=== PATIENT | female | born 1960 | race Caucasian/White ===

== ENCOUNTER 2020-03-29 08:00 | Outpatient (REF) | payer OTHER, SELFPAY ==
[2020-03-29 11:16] LABS: MANUAL DIFF FLAG NO
[2020-03-29 11:32] LABS: Basophils Percent Auto 0.4 % (0-2); Eosinophils Absolute Auto 0.1 X10*3/uL (0.0-0.4); Eosinophils Percent Auto 0.8 % (0-4); Hematocrit 42.8 % (37-47); Hemoglobin 13.9 g/dl (12.0-16.0); Imm Gran Abs Auto 0.08 X10*3/uL (0.00-0.03); Imm Gran Pct Auto 0.8 % (0.0-0.4); Lymphocytes Absolute Auto 2.3 X10*3/uL (1.2-4.9); Lymphocytes Percent Auto 21.4 % (20-40); Mean Corpuscular HGB Conc 32.5 g/dl (31.0-35.0); Mean Corpuscular Hemoglobin 31.7 pg (27.0-33.0); Mean Corpuscular Volume 97.7 fL (80-98); Mean Platelet Volume 8.7 fL (9.4-12.3); Monocytes Absolute Auto 0.6 X10*3/uL (0.1-1.2); Neutrophils Absolute Auto 7.5 X10*3/uL (2.0-8.3); Neutrophils Percent Auto 70.6 % (45-73); Platelet Count 332 X10*3/uL (160-400); Red Blood Count 4.38 X10*6/uL (4.20-5.50); Red Cell Distribution Width 13.8 % (11.0-16.0); White Blood Count 10.7 X10*3/uL (4.8-10.8)
[2020-03-29 12:20] LABS: Alanine Aminotransferase 13 U/L (0-31); Albumin Level 4.4 g/dL (3.5-5.0); Alkaline Phosphatase 71 U/L (39-117); Anion Gap 17 (12-20); Aspartate Amino Transferase 13 U/L (5-31); Bilirubin Total 0.3 mg/dL (0.0-1.0); Blood Urea Nitrogen 23 mg/dL (9-16); Calcium 8.8 mg/dL (8.4-10.2); Carbon Dioxide 24 mmol/L (22-29); Chloride 100 mmol/L (96-108); Cholesterol 197 mg/dL; Estimated Glomerular Filt Rate > 60; Glucose Fasting 115 mg/dL (60-99); HDL Cholesterol 49 mg/dL; LDL Cholesterol Calculated 104 mg/dl; Potassium 4.6 mmol/l (3.3-5.1); Sodium 136 mmol/L (135-145); Triglycerides 222 mg/dL
[2020-03-29 12:43] LABS: Estimated Average Glucose 131 mg/dL; Hemoglobin A1c % 6.2 %
[2020-03-29 12:47] LABS: TSH reflex Free T4 6.05 mIU/mL (0.32-4.0)
[2020-03-29 12:49] LABS: Creatinine Urine 101.29 mg/dL; Microalbum/Creatinine Ratio Ur 21.7 ug/mg cr
[2020-03-29 13:27] LABS: Free T4 (Free Thyroxine) 1.07 ng/dL (0.71-1.85)
== END 2020-03-29 08:01 | disposition home or self-care (01) ==
LOC: HO.HMGCLDS 08:00
PROVIDERS: PCP Internal Medicine; Visit Provider Internal Medicine
DX: I10 Essential (primary) hypertension (principal); E78.9 Disorder of lipoprotein metabolism, unspecified; E03.8 Other specified hypothyroidism; E13.9 Other specified diabetes mellitus without complications; E66.01 Morbid (severe) obesity due to excess calories; Z68.41 Body mass index [BMI] 40.0-44.9, adult; Z76.89 Persons encountering health services in other specified circumstances
CPT/HCPCS: 36415; 80053; 80061; 82043; 83036; 84439; 84443; 85025

== ENCOUNTER 2020-07-11 08:39 | Outpatient (REF) | payer OTHER, SELFPAY ==
[2020-07-11 11:43] LABS: Estimated Average Glucose 131 mg/dL; Hemoglobin A1c % 6.2 %
[2020-07-11 11:51] LABS: Alanine Aminotransferase 16 U/L (0-31); Albumin Level 4.7 g/dL (3.5-5.0); Alkaline Phosphatase 72 U/L (39-117); Anion Gap 15 (12-20); Aspartate Amino Transferase 15 U/L (5-31); Bilirubin Direct 0.2 mg/dL (0.0-0.5); Bilirubin Total 0.6 mg/dL (0.0-1.0); Blood Urea Nitrogen 19 mg/dL (9-16); Calcium 9.1 mg/dL (8.4-10.2); Carbon Dioxide 28 mmol/L (22-29); Chloride 97 mmol/L (96-108); Estimated Glomerular Filt Rate > 60; Glucose Random 114 mg/dL (60-115); Potassium 4.6 mmol/L (3.3-5.1); Sodium 135 mmol/L (135-145); Total Protein 7.2 g/dL (6.5-8.0)
[2020-07-11 12:14] LABS: Creatinine Urine 80.75 mg/dL; Microalbum/Creatinine Ratio Ur 14.8 ug/mg cr
[2020-07-11 12:15] LABS: TSH reflex Free T4 6.14 uIU/mL (0.32-4.0)
[2020-07-11 13:06] LABS: Free T4 (Free Thyroxine) 1.08 ng/dL (0.71-1.85)
[2020-07-12 06:31] LABS: LDL Cholesterol Direct 92 mg/dL (<100)
== END 2020-07-11 08:40 | disposition home or self-care (01) ==
LOC: HO.HMGCLDS 08:39
PROVIDERS: PCP Internal Medicine; Visit Provider Internal Medicine
DX: E13.9 Other specified diabetes mellitus without complications (principal); E03.8 Other specified hypothyroidism; E78.9 Disorder of lipoprotein metabolism, unspecified; I10 Essential (primary) hypertension
CPT/HCPCS: 36415; 80048; 80076; 82043; 83036; 83721; 84439; 84443

== ENCOUNTER 2021-03-07 06:31 | Outpatient (REF) | payer OTHER, SELFPAY ==
[2021-03-07 11:20] LABS: MANUAL DIFF FLAG NO
[2021-03-07 11:23] LABS: Basophils Absolute Auto 0.1 X10*3/uL (0.0-0.2); Basophils Percent Auto 0.6 % (0-2); Eosinophils Absolute Auto 0.2 X10*3/uL (0.0-0.4); Eosinophils Percent Auto 1.8 % (0-4); Hemoglobin 14.7 g/dl (12.0-16.0); Imm Gran Abs Auto 0.04 X10*3/uL (0.00-0.03); Imm Gran Pct Auto 0.5 % (0.0-0.4); Lymphocytes Percent Auto 23.8 % (20-40); Mean Corpuscular HGB Conc 32.7 g/dl (31.0-35.0); Mean Corpuscular Volume 94.9 fL (80-98); Monocytes Absolute Auto 0.7 X10*3/uL (0.1-1.2); Monocytes Percent Auto 8.8 % (2-11); Neutrophils Absolute Auto 5.4 X10*3/uL (2.0-8.3); Neutrophils Percent Auto 64.5 % (45-73); Platelet Count 308 X10*3/uL (160-400); Red Blood Count 4.74 X10*6/uL (4.20-5.50); Red Cell Distribution Width 13.4 % (11.0-16.0); White Blood Count 8.3 X10*3/uL (4.8-10.8)
[2021-03-07 11:36] LABS: Estimated Average Glucose 128 mg/dL; Hemoglobin A1c % 6.1 %
[2021-03-07 11:46] LABS: Alanine Aminotransferase 16 U/L (0-31); Albumin Level 4.3 g/dL (3.5-5.0); Alkaline Phosphatase 78 U/L (39-117); Anion Gap 16 (12-20); Aspartate Amino Transferase 18 U/L (5-31); Bilirubin Total 0.3 mg/dL (0.0-1.0); Blood Urea Nitrogen 16 mg/dL (9-16); Calcium 8.9 mg/dL (8.4-10.2); Carbon Dioxide 26 mmol/L (22-29); Chloride 99 mmol/L (96-108); Cholesterol 175 mg/dL; Estimated Glomerular Filt Rate > 60; Glucose Fasting 120 mg/dL (60-99); HDL Cholesterol 45 mg/dL; LDL Cholesterol Calculated 102 mg/dl; Potassium 4.5 mmol/L (3.3-5.1); Sodium 136 mmol/L (135-145); Total Protein 6.7 g/dL (6.5-8.0); Triglycerides 141 mg/dL
[2021-03-07 11:56] LABS: TSH reflex Free T4 2.57 uIU/mL (0.32-4.0)
[2021-03-07 12:13] LABS: Creatinine Urine 156.86 mg/dL; Microalbum/Creatinine Ratio Ur 24.2 ug/mg cr
== END 2021-03-07 06:32 | disposition home or self-care (01) ==
LOC: HO.HMGCLDS 06:31
PROVIDERS: PCP Internal Medicine; Visit Provider Internal Medicine
DX: E03.8 Other specified hypothyroidism (principal); E13.9 Other specified diabetes mellitus without complications; E78.9 Disorder of lipoprotein metabolism, unspecified; I10 Essential (primary) hypertension
CPT/HCPCS: 36415; 80053; 80061; 82043; 83036; 84443; 85025

== ENCOUNTER 2021-08-13 13:20 | Outpatient (REF) | payer OTHER, SELFPAY ==
--- NOTE | ~2021-08-13 | MM_ITS ---
EXAMINATION: MM SCREENING DIGITAL BREAST TOMOSYNTHESIS, BILATERAL CLINICAL INFORMATION: Screening. Asymptomatic. The lifetime risk of breast cancer based on the Tyrer-Cuzick Model is 4%. COMPARISON: Mammography: 07/06/2015 TECHNIQUE: Digital breast tomosynthesis is performed in both the craniocaudal and mediolateral oblique views along with computer-aided detection (CAD). Synthesized 2D images are generated from the tomosynthesis. FINDINGS: There are scattered areas of fibroglandular density (ACR BI-RADS breast composition Category b). There are no significant masses, abnormal calcifications, or other abnormalities. Parenchymal pattern is similar to prior exam. There are scattered benign round and rim and some vascular calcifications. The axilla and skin contours are unremarkable. No significant changes. MM/MM tomosynthesis screening BI IMPRESSION: No mammographic evidence of malignancy. ASSESSMENT: BI-RADS 1: Negative RECOMMENDATION: Routine annual mammography screening. This patient's information was entered into a reminder system with a target due date for their next mammogram.
== END 2021-08-13 13:21 | disposition home or self-care (01) ==
LOC: HO.MAMMO 13:20
PROVIDERS: PCP Internal Medicine; Visit Provider Internal Medicine
DX: Z12.31 Encounter for screening mammogram for malignant neoplasm of breast (principal)
CPT/HCPCS: 77063; 77067

== ENCOUNTER 2021-08-17 07:30 | Outpatient (REF) | payer OTHER, SELFPAY ==
[2021-08-17 11:24] LABS: Alanine Aminotransferase 14 U/L (0-31); Albumin Level 4.4 g/dL (3.5-5.0); Alkaline Phosphatase 70 U/L (39-117); Anion Gap 16 (12-20); Aspartate Amino Transferase 14 U/L (5-31); Bilirubin Total 0.5 mg/dL (0.0-1.0); Blood Urea Nitrogen 20 mg/dL (9-16); Calcium 9.4 mg/dL (8.4-10.2); Carbon Dioxide 23 mmol/L (22-29); Chloride 101 mmol/L (96-108); Cholesterol 187 mg/dL; Estimated Average Glucose 126 mg/dL; Estimated Glomerular Filt Rate > 60; Glucose Fasting 140 mg/dL (60-99); HDL Cholesterol 50 mg/dL; LDL Cholesterol Calculated 106 mg/dl; Potassium 4.8 mmol/L (3.3-5.1); Sodium 135 mmol/L (135-145); Total Protein 6.9 g/dL (6.5-8.0); Triglycerides 155 mg/dL
[2021-08-17 11:28] LABS: Creatinine Urine 89.52 mg/dL; Microalbum/Creatinine Ratio Ur 32.3 ug/mg cr
== END 2021-08-17 07:31 | disposition home or self-care (01) ==
LOC: HO.HMGCLDS 07:30
PROVIDERS: PCP Internal Medicine; Visit Provider Internal Medicine
DX: Z00.01 Encounter for general adult medical examination with abnormal findings (principal); I10 Essential (primary) hypertension; E78.9 Disorder of lipoprotein metabolism, unspecified; E03.8 Other specified hypothyroidism; E13.9 Other specified diabetes mellitus without complications
CPT/HCPCS: 36415; 80053; 80061; 82043; 83036; 84443

== ENCOUNTER 2022-01-21 08:14 | Outpatient (REF) | payer OTHER, SELFPAY ==
[2022-01-21 12:02] LABS: Alanine Aminotransferase 11 U/L (0-31); Albumin Level 4.3 g/dL (3.5-5.0); Alkaline Phosphatase 73 U/L (39-117); Anion Gap 17 (12-20); Aspartate Amino Transferase 13 U/L (5-31); Bilirubin Total 0.5 mg/dL (0.0-1.0); Blood Urea Nitrogen 16 mg/dL (9-16); Calcium 8.7 mg/dL (8.4-10.2); Carbon Dioxide 25 mmol/L (22-29); Chloride 99 mmol/L (96-108); Estimated Glomerular Filt Rate > 60; Glucose Random 115 mg/dL (60-115); Potassium 4.7 mmol/L (3.3-5.1); Sodium 136 mmol/L (135-145); Total Protein 6.9 g/dL (6.5-8.0)
[2022-01-21 12:17] LABS: Estimated Average Glucose 120 mg/dL; Hemoglobin A1c % 5.8 %
[2022-01-21 12:39] LABS: Creatinine Urine 168.52 mg/dL; Microalbum/Creatinine Ratio Ur 13.6 ug/mg cr
== END 2022-01-21 08:15 | disposition home or self-care (01) ==
LOC: HO.HMGCLDS 08:14
PROVIDERS: PCP Internal Medicine; Visit Provider Internal Medicine
DX: E03.8 Other specified hypothyroidism (principal); E13.9 Other specified diabetes mellitus without complications; E66.01 Morbid (severe) obesity due to excess calories; E78.9 Disorder of lipoprotein metabolism, unspecified; I10 Essential (primary) hypertension
CPT/HCPCS: 36415; 80053; 82043; 83036

== ENCOUNTER 2022-09-18 07:50 | Outpatient (REF) | payer OTHER, SELFPAY ==
[2022-09-18 11:15] LABS: MANUAL DIFF FLAG NO
[2022-09-18 11:36] LABS: Basophils Absolute Auto 0.1 X10*3/uL (0.0-0.2); Basophils Percent Auto 0.6 % (0-2); Eosinophils Absolute Auto 0.1 X10*3/uL (0.0-0.4); Eosinophils Percent Auto 0.5 % (0-4); Hematocrit 46.6 % (37.0-47.0); Hemoglobin 15.8 g/dl (12.0-16.0); Imm Gran Abs Auto 0.07 X10*3/uL (0.00-0.03); Imm Gran Pct Auto 0.7 % (0.0-0.4); Lymphocytes Absolute Auto 2.4 X10*3/uL (1.2-4.9); Lymphocytes Percent Auto 22.5 % (20-40); Mean Corpuscular HGB Conc 33.9 g/dl (31.0-35.0); Mean Corpuscular Hemoglobin 32.3 pg (27.0-33.0); Mean Corpuscular Volume 95.3 fL (80.0-98.0); Mean Platelet Volume 8.9 fL (9.4-12.3); Monocytes Absolute Auto 0.6 X10*3/uL (0.1-1.2); Monocytes Percent Auto 5.8 % (2-11); Neutrophils Absolute Auto 7.3 x10*3/uL (2.0-8.3); Neutrophils Percent Auto 69.9 % (45-73); Platelet Count 349 X10*3/uL (160-400); Red Blood Count 4.89 X10*6/uL (4.20-5.50); Red Cell Distribution Width 14.1 % (11.0-16.0); White Blood Count 10.5 X10*3/uL (4.8-10.8)
[2022-09-18 12:16] LABS: Creatinine Urine 77.87 mg/dL; Microalbum/Creatinine Ratio Ur 62.9 ug/mg cr
[2022-09-18 12:17] LABS: Alanine Aminotransferase 10 U/L (0-31); Albumin Level 4.4 g/dL (3.5-5.0); Alkaline Phosphatase 76 U/L (39-117); Anion Gap 15 (12-20); Aspartate Amino Transferase 12 U/L (5-31); Bilirubin Total 0.6 mg/dL (0.0-1.0); Blood Urea Nitrogen 19 mg/dL (9-16); Calcium 8.9 mg/dL (8.4-10.2); Carbon Dioxide 27 mmol/L (22-29); Chloride 100 mmol/L (96-108); Cholesterol 198 mg/dL; Estimated Glomerular Filt Rate > 60; Glucose Fasting 126 mg/dL (60-99); HDL Cholesterol 57 mg/dL; LDL Cholesterol Calculated 116 mg/dl; Potassium 4.9 mmol/L (3.3-5.1); Sodium 137 mmol/L (135-145); TSH reflex Free T4 2.05 uIU/mL (0.32-4.0); Triglycerides 125 mg/dL
[2022-09-18 12:24] LABS: Estimated Average Glucose 128 mg/dL; Hemoglobin A1C 182.8656 umol/L; Hemoglobin A1c % 6.1 %
== END 2022-09-18 07:51 | disposition home or self-care (01) ==
LOC: HO.HMGCLDS 07:50
PROVIDERS: PCP Internal Medicine; Visit Provider Internal Medicine
DX: E03.8 Other specified hypothyroidism (principal); E13.9 Other specified diabetes mellitus without complications; E66.01 Morbid (severe) obesity due to excess calories; E78.9 Disorder of lipoprotein metabolism, unspecified; I10 Essential (primary) hypertension
CPT/HCPCS: 36415; 80053; 80061; 82043; 83036; 84443; 85025

== ENCOUNTER 2023-01-20 09:17 | Outpatient (AMB) | payer OTHER, SELFPAY ==
--- NOTE | 2023-01-20 10:34 | MHC.PC.OV ---
Intake Visit Reasons: Follow Up~ Allergies No Known Allergies [No Known Allergies*] Allergy (Verified 01/20/23 10:34) Medication List - Last Reconciled 01/20/23 by Kia Young MD amlodipine 10 mg PO DAILY 90 days cetirizine (Zyrtec) 10 mg PO DAILY 30 days escitalopram oxalate (Lexapro) 10 mg PO DAILY 90 days fluticasone propionate 50 mcg/actuation (Allergy Relief (fluticasone)) 1 spray intranasal DAILY 30 days hydrochlorothiazide 25 mg PO QAM levothyroxine 175 mcg PO DAILY 90 days lisinopril 40 mg PO ONCE 90 days metformin 1,000 mg PO BID simvastatin 40 mg PO BEDTIME Tobacco use date assessed: 01/20/23 Dental Screening Dental Screen Date: 01/20/23 Did you have a dental visit in the last 12 months?: No Did you have a dental problem in the last 6 months where you did not have access to dental care?: No Was dental information given to patient?: Patient has dentist HPI Follow Up~ HPI Details Patient is 62-year-old female this is a telemedicine video follow-up appointment Patient is doing well taking all her medications and is stable Requesting refill on her long-acting antihistamine which I have sent for her Hypertension: Patient is on lisinopril to 40 mg and amlodipine 10 mg, she is to continue with hydrochlorothiazide 25 mg. Tolerating medication blood pressure is stable, blood pressure is running around 128-130 systolic at home Diabetes: Hemoglobin A1c is stable , patient is taking metformin 1 g b.i.d. and tolerating medication. Lipid disorder: Continue simvastatin 40 mg Morbid obesity: Patient is still struggling to lose weight Labs needs to be done in 3 months with follow-up appointment [facility] Surgical History No pertinent past surgical history Family History Other Mental health disorder Substance use disorder Social History Housing: Apartment Patient Tobacco Use Status: Former Tobacco user e-Cigarette/Vaping Use: Never Used service: No Current occupational status: employed Cognitive needs: No Hearing needs: No Vision needs: Yes Questionnaire Thrive Questionnaire Date Thrive assessed: 06/18/21 AUDIT C Alcohol Use Questionnaire (AUDIT-C) 1. How often do you have a drink containing alcohol?: Never 3. How often do you have six or more drinks on one occasion?: Never Total Score: 0 Score Reviewed/Action Taken: Yes DANICA-7 AMB Questionnaire DANICA-7 Date DANICA - 7 assessed: 06/18/21 Source: Developed by Drs. José Manuel Brady, Nelda Brian, Perez Lorenzo and colleagues, with an educational rudy from [employer]. Review of Systems Const Denies chills and Denies fever(s) ENT Denies epistaxis and Denies nasal discharge Card Denies chest pain Resp Denies chest congestion, Denies cough and Denies hemoptysis GI Denies diarrhea and Denies nausea Skin/Breast Denies rash Neuro Reports no additional complaints Psych Reports no additional complaints Endo Reports no additional complaints Physical exam (Primary Care) Tobacco/Smoking Status: Tobacco use Status Tobacco use date assessed 01/20/23 01/20/23 10:35 Patient Tobacco Use Status Former Tobacco user 01/20/23 10:35 e-Cigarette/Vaping Use Never Used 01/20/23 10:35 Thrive Assessment: Date of Thrive Assessment Date Thrive assessed 06/18/21 01/20/23 10:35 Telehealth Telehealth Location of provider rendering services: practice address Location of patient: address on file Patient Identification confirmed using: Name, : Yes Telehealth method: video Patient verbally consented to treatment: Yes Patient verbally consented to billing insurance company: Yes Patient informed of any privacy concerns related to visit: Yes Assessment and Plan Assessment & Plan (1) Diabetes 1.5, managed as type 2: Code(s): E13.9 - Other specified diabetes mellitus without complications (2) Other specified hypothyroidism: Code(s): E03.8 - Other specified hypothyroidism (3) Lipid disorder: Code(s): E78.9 - Disorder of lipoprotein metabolism, unspecified (4) Hypertension, essential: Code(s): I10 - Essential (primary) hypertension (5) Morbid obesity due to excess calories: Code(s): E66.01 - Morbid (severe) obesity due to excess calories Plan Patient is 62-year-old female this is a telemedicine video follow-up appointment Patient is doing well taking all her medications and is stable Requesting refill on her long-acting antihistamine which I have sent for her Hypertension: Patient is on lisinopril to 40 mg and amlodipine 10 mg, she is to continue with hydrochlorothiazide 25 mg. Tolerating medication blood pressure is stable, blood pressure is running around 128-130 systolic at home Diabetes: Hemoglobin A1c is stable , patient is taking metformin 1 g b.i.d. and tolerating medication. Lipid disorder: Continue simvastatin 40 mg Morbid obesity: Patient is still struggling to lose weight Labs needs to be done in 3 months with follow-up appointment Orders: Orders Hemoglobin A1c 3 Months E03.8 - Other specified hypothyroidism, E13.9 - Other specified diabetes mellitus without complications, E66.01 - Morbid (severe) obesity due to excess calories, E78.9 - Disorder of lipoprotein metabolism, unspecified, I10 - Essential (primary) hypertension Comprehensive [place]. Panel Fast 3 Months E03.8 - Other specified hypothyroidism, E13.9 - Other specified diabetes mellitus without complications, E66.01 - Morbid (severe) obesity due to excess calories, E78.9 - Disorder of lipoprotein metabolism, unspecified, I10 - Essential (primary) hypertension TSH reflex Free T4 3 Months E03.8 - Other specified hypothyroidism, E13.9 - Other specified diabetes mellitus without complications, E66.01 - Morbid (severe) obesity due to excess calories, E78.9 - Disorder of lipoprotein metabolism, unspecified, I10 - Essential (primary) hypertension Microalbumin, Random (w Creat) 3 Months E03.8 - Other specified hypothyroidism, E13.9 - Other specified diabetes mellitus without complications, E66.01 - Morbid (severe) obesity due to excess calories, E78.9 - Disorder of lipoprotein metabolism, unspecified, I10 - Essential (primary) hypertension Complete Blood Count Auto Diff 3 Months E03.8 - Other specified hypothyroidism, E13.9 - Other specified diabetes mellitus without complications, E66.01 - Morbid (severe) obesity due to excess calories, E78.9 - Disorder of lipoprotein metabolism, unspecified, I10 - Essential (primary) hypertension Lipid Panel 3 Months E03.8 - Other specified hypothyroidism, E13.9 - Other specified diabetes mellitus without complications, E66.01 - Morbid (severe) obesity due to excess calories, E78.9 - Disorder of lipoprotein metabolism, unspecified, I10 - Essential (primary) hypertension Coding Level of Care Code Tele Est Pt Level 4 (66468) Diagnoses Diabetes 1.5, managed as type 2 E13.9 Other specified hypothyroidism E03.8 Lipid disorder E78.9 Hypertension, essential I10 Morbid obesity due to excess calories E66.01 Comment 5 prep, 15 with patient, 10 charting / labs / meds
== END 2023-01-20 14:45 | disposition home or self-care (01) ==
LOC: HO.HMGC 09:17
PROVIDERS: PCP Internal Medicine; Visit Provider Internal Medicine
DX: E13.9 Other specified diabetes mellitus without complications (principal); E03.8 Other specified hypothyroidism; I10 Essential (primary) hypertension; E66.01 Morbid (severe) obesity due to excess calories; E78.9 Disorder of lipoprotein metabolism, unspecified
CPT/HCPCS: 99214

== ENCOUNTER 2023-04-18 08:50 | Outpatient (REF) | payer OTHER, SELFPAY ==
[2023-04-18 10:49] LABS: MANUAL DIFF FLAG NO
[2023-04-18 11:06] LABS: Basophils Percent Auto 0.4 % (0-2); Eosinophils Absolute Auto 0.1 X10*3/uL (0.0-0.4); Eosinophils Percent Auto 0.6 % (0-4); Hematocrit 44.6 % (37.0-47.0); Hemoglobin 15.3 g/dl (12.0-16.0); Imm Gran Abs Auto 0.04 X10*3/uL (0.00-0.03); Imm Gran Pct Auto 0.4 % (0.0-0.4); Lymphocytes Absolute Auto 2.2 X10*3/uL (1.2-4.9); Lymphocytes Percent Auto 20.4 % (20-40); Mean Corpuscular HGB Conc 34.3 g/dl (31.0-35.0); Mean Corpuscular Hemoglobin 32.1 pg (27.0-33.0); Mean Corpuscular Volume 93.7 fL (80.0-98.0); Mean Platelet Volume 8.7 fL (9.4-12.3); Monocytes Absolute Auto 0.5 X10*3/uL (0.1-1.2); Monocytes Percent Auto 4.7 % (2-11); Neutrophils Absolute Auto 7.8 x10*3/uL (2.0-8.3); Neutrophils Percent Auto 73.5 % (45-73); Platelet Count 328 X10*3/uL (160-400); Red Blood Count 4.76 X10*6/uL (4.20-5.50); Red Cell Distribution Width 13.6 % (11.0-16.0); White Blood Count 10.5 X10*3/uL (4.8-10.8)
[2023-04-18 11:15] LABS: Estimated Average Glucose 126 mg/dL
[2023-04-18 11:18] LABS: Alanine Aminotransferase 11 U/L (0-31); Albumin Level 4.3 g/dL (3.5-5.0); Alkaline Phosphatase 68 U/L (39-117); Anion Gap 13 (12-20); Aspartate Amino Transferase 14 U/L (5-31); Bilirubin Total 0.4 mg/dL (0.0-1.0); Blood Urea Nitrogen 14 mg/dL (9-16); Calcium 9.2 mg/dL (8.4-10.2); Carbon Dioxide 29 mmol/L (22-29); Chloride 98 mmol/L (96-108); Cholesterol 165 mg/dL (<200); Estimated Glomerular Filt Rate > 60; Glucose Fasting 98 mg/dL (60-99); HDL Cholesterol 48 mg/dL (>40); LDL Cholesterol Calculated 83 mg/dL (<100); Sodium 136 mmol/L (135-145); Total Protein 7.1 g/dL (6.5-8.0); Triglycerides 172 mg/dL (<150)
[2023-04-18 11:32] LABS: Creatinine Urine 122.68 mg/dL; Microalbum/Creatinine Ratio Ur 34.2 ug/mg cr (<30)
[2023-04-18 11:40] LABS: TSH reflex Free T4 1.07 uIU/mL (0.32-4.0)
== END 2023-04-18 08:51 | disposition home or self-care (01) ==
LOC: HO.HMGCLDS 08:50
PROVIDERS: PCP Internal Medicine; Visit Provider Internal Medicine
DX: E13.9 Other specified diabetes mellitus without complications (principal); E03.8 Other specified hypothyroidism; E78.9 Disorder of lipoprotein metabolism, unspecified; I10 Essential (primary) hypertension; E66.01 Morbid (severe) obesity due to excess calories
CPT/HCPCS: 36415; 80053; 80061; 82043; 82570; 83036; 84443; 85025

== ENCOUNTER 2023-04-23 09:06 | Outpatient (AMB) | payer OTHER, SELFPAY ==
--- NOTE | 2023-04-23 09:05 | MHC.PC.OV ---
Intake Visit Reasons: 3 month follow up Allergies No Known Allergies [No Known Allergies*] Allergy (Verified 04/23/23 09:09) Medication List - Last Reconciled 04/23/23 by Kia Young MD amlodipine 10 mg PO DAILY 90 days cetirizine (Zyrtec) 10 mg PO DAILY 30 days escitalopram oxalate (Lexapro) 10 mg PO DAILY 90 days fluticasone propionate 50 mcg/actuation (Allergy Relief (fluticasone)) 1 spray intranasal DAILY 30 days hydrochlorothiazide 25 mg PO QAM levothyroxine 175 mcg PO DAILY 90 days lisinopril 40 mg PO ONCE 90 days metformin 1,000 mg PO BID simvastatin 40 mg PO BEDTIME Tobacco use date assessed: 04/23/23 Dental Screening Dental Screen Date: 04/23/23 Did you have a dental visit in the last 12 months?: No Did you have a dental problem in the last 6 months where you did not have access to dental care?: No Was dental information given to patient?: No HPI 3 month follow up HPI Details Patient is 62-year-old female this is a telemedicine video follow-up appointment Patient is in her usual state of health and offer no new complaints Hypertension: Patient is on lisinopril to 40 mg and amlodipine 10 mg, she is to continue with hydrochlorothiazide 25 mg. Tolerating medication blood pressure is stable, blood pressure is running around 120-130 systolic at home Diabetes: Hemoglobin A1c is stable , patient is taking metformin 1 g b.i.d. and tolerating medication. I am reducing it to 1 a day Lipid disorder: Continue simvastatin 40 mg Allergies are stable patient is on long-acting antihistamine Morbid obesity: Patient is still struggling to lose weight Labs needs to be done in 3 months with follow-up appointment [facility] Surgical History No pertinent past surgical history Family History Other Mental health disorder Substance use disorder Social History Housing: Apartment Patient Tobacco Use Status: Former Tobacco user e-Cigarette/Vaping Use: Never Used service: No Current occupational status: employed Cognitive needs: No Hearing needs: No Vision needs: Yes Questionnaire Thrive Questionnaire Date Thrive assessed: 06/18/21 AUDIT C Alcohol Use Questionnaire (AUDIT-C) 1. How often do you have a drink containing alcohol?: Never 3. How often do you have six or more drinks on one occasion?: Never Total Score: 0 Score Reviewed/Action Taken: Yes DANICA-7 AMB Questionnaire DANICA-7 Date DANICA - 7 assessed: 06/18/21 Source: Developed by Drs. José Manuel Brady, Nelda Brian, Perez Lorenzo and colleagues, with an educational rudy from [employer]. Review of Systems Const Denies chills and Denies fever(s) ENT Denies epistaxis and Denies nasal discharge Card Denies chest pain Resp Denies chest congestion, Denies cough and Denies hemoptysis GI Denies diarrhea and Denies nausea Skin/Breast Denies rash Neuro Reports no additional complaints Psych Reports no additional complaints Endo Reports no additional complaints Physical exam (Primary Care) Tobacco/Smoking Status: Tobacco use Status Tobacco use date assessed 01/20/23 01/20/23 10:35 Patient Tobacco Use Status Former Tobacco user 01/20/23 10:35 e-Cigarette/Vaping Use Never Used 01/20/23 10:35 Thrive Assessment: Date of Thrive Assessment Date Thrive assessed 06/18/21 01/20/23 10:35 Telehealth Telehealth Location of provider rendering services: practice address Location of patient: address on file Patient Identification confirmed using: Name, : Yes Telehealth method: video Patient verbally consented to treatment: Yes Patient verbally consented to billing insurance company: Yes Patient informed of any privacy concerns related to visit: Yes Assessment and Plan Assessment & Plan (1) Diabetes mellitus type 2 in obese: Code(s): E11.69 - Type 2 diabetes mellitus with other specified complication; E66.9 - Obesity, unspecified (2) Morbid obesity due to excess calories: Code(s): E66.01 - Morbid (severe) obesity due to excess calories (3) Other specified hypothyroidism: Code(s): E03.8 - Other specified hypothyroidism (4) Lipid disorder: Code(s): E78.9 - Disorder of lipoprotein metabolism, unspecified (5) Hypertension, essential: Code(s): I10 - Essential (primary) hypertension Plan Patient is 62-year-old female this is a telemedicine video follow-up appointment Patient is in her usual state of health and offer no new complaints Hypertension: Patient is on lisinopril to 40 mg and amlodipine 10 mg, she is to continue with hydrochlorothiazide 25 mg. Tolerating medication blood pressure is stable, blood pressure is running around 120-130 systolic at home Diabetes: Hemoglobin A1c is stable , patient is taking metformin 1 g b.i.d. and tolerating medication. I am reducing it to 1 a day Lipid disorder: Continue simvastatin 40 mg Allergies are stable patient is on long-acting antihistamine Morbid obesity: Patient is still struggling to lose weight Labs needs to be done in 3 months with follow-up appointment Orders: Orders Hemoglobin A1c Today E03.8 - Other specified hypothyroidism, E11.69 - Type 2 diabetes mellitus with other specified complication, E66.01 - Morbid (severe) obesity due to excess calories, E66.9 - Obesity, unspecified, E78.9 - Disorder of lipoprotein metabolism, unspecified, I10 - Essential (primary) hypertension Comprehensive [place]. Panel Today E03.8 - Other specified hypothyroidism, E11.69 - Type 2 diabetes mellitus with other specified complication, E66.01 - Morbid (severe) obesity due to excess calories, E66.9 - Obesity, unspecified, E78.9 - Disorder of lipoprotein metabolism, unspecified, I10 - Essential (primary) hypertension Microalbumin, Random (w Creat) Today E03.8 - Other specified hypothyroidism, E11.69 - Type 2 diabetes mellitus with other specified complication, E66.01 - Morbid (severe) obesity due to excess calories, E66.9 - Obesity, unspecified, E78.9 - Disorder of lipoprotein metabolism, unspecified, I10 - Essential (primary) hypertension Coding Level of Care Code Tele Est Pt Level 4 (63877) Diagnoses Diabetes mellitus type 2 in obese E11.69; E66.9 Morbid obesity due to excess calories E66.01 Other specified hypothyroidism E03.8 Lipid disorder E78.9 Hypertension, essential I10 Time Spent (min) 15
== END 2023-04-23 10:09 | disposition home or self-care (01) ==
LOC: HO.HMGC 09:06
PROVIDERS: PCP Internal Medicine; Visit Provider Internal Medicine
DX: E11.69 Type 2 diabetes mellitus with other specified complication (principal); E66.01 Morbid (severe) obesity due to excess calories; E03.8 Other specified hypothyroidism; E78.9 Disorder of lipoprotein metabolism, unspecified; I10 Essential (primary) hypertension
CPT/HCPCS: 99214

== ENCOUNTER 2023-07-23 08:54 | Outpatient (AMB) | payer OTHER, SELFPAY ==
--- NOTE | 2023-07-23 09:05 | A.OFFPC_ITS ---
Intake Visit Reasons: 6 month follow up Allergies No Known Allergies [No Known Allergies*] Allergy (Verified 07/23/23 09:05) Medication List - Last Reconciled 07/23/23 by Kia Young MD amlodipine 10 mg PO DAILY 90 days cetirizine (Zyrtec) 10 mg PO DAILY 30 days escitalopram oxalate (Lexapro) 10 mg PO DAILY 90 days fluticasone propionate 50 mcg/actuation (Allergy Relief (fluticasone)) 1 spray intranasal DAILY 30 days hydrochlorothiazide 25 mg PO QAM levothyroxine 175 mcg PO DAILY 90 days lisinopril 40 mg PO ONCE 90 days metformin 1,000 mg PO BID simvastatin 40 mg PO BEDTIME Tobacco use date assessed: 07/23/23 Dental Screening Dental Screen Date: 07/23/23 Did you have a dental visit in the last 12 months?: No Did you have a dental problem in the last 6 months where you did not have access to dental care?: No Was dental information given to patient?: No HPI 6 month follow up HPI Details Patient is 62-year-old female this is a telemedicine video follow-up appointment Allergies are acting up these days, patient is requesting refill on cetirizine which I have sent She says that she has been experiencing dry mouth at night, we talked about breathing from mouth, there is a possibility she has nasal congestion because of allergies, I would recommend to start using Flonase nasal spray every night, and if that is not enough then she may use it 2 times a day once at night and once in the morning until spring is here. Hypertension: Patient is on lisinopril to 40 mg and amlodipine 10 mg, she is to continue with hydrochlorothiazide 25 mg. Tolerating medication blood pressure is stable, blood pressure is running around 120-130 systolic at home Diabetes: Hemoglobin A1c is stable , patient is taking metformin 1 g once a day, labs were done in April we will do another set of lab before her visit in September Lipid disorder: Continue simvastatin 40 mg Patient have follow-up appointment for physical exam early September [facility] Surgical History No pertinent past surgical history Family History Other Mental health disorder Substance use disorder Social History Housing: Apartment Patient Tobacco Use Status: Former Tobacco user e-Cigarette/Vaping Use: Never Used service: No Current occupational status: employed Cognitive needs: No Hearing needs: No Vision needs: Yes Questionnaire Thrive Questionnaire Date Thrive assessed: 06/18/21 AUDIT C Alcohol Use Questionnaire (AUDIT-C) 1. How often do you have a drink containing alcohol?: Never 3. How often do you have six or more drinks on one occasion?: Never Total Score: 0 Score Reviewed/Action Taken: Yes DANICA-7 AMB Questionnaire DANICA-7 Date DANICA - 7 assessed: 06/18/21 Source: Developed by Drs. José Manuel Brady, Nelda Brian, Perez Lorenzo and colleagues, with an educational rudy from [employer]. Review of Systems Const Denies chills and Denies fever(s) ENT Denies epistaxis and Denies nasal discharge Card Denies chest pain Resp Denies chest congestion, Denies cough and Denies hemoptysis GI Denies diarrhea and Denies nausea Skin/Breast Denies rash Neuro Reports no additional complaints Psych Reports no additional complaints Endo Reports no additional complaints Physical exam (Primary Care) Tobacco/Smoking Status: Tobacco use Status Tobacco use date assessed 07/23/23 07/23/23 09:06 Patient Tobacco Use Status Former Tobacco user 07/23/23 09:06 e-Cigarette/Vaping Use Never Used 07/23/23 09:06 Thrive Assessment: Date of Thrive Assessment Date Thrive assessed 06/18/21 07/23/23 09:06 Telehealth Telehealth Location of provider rendering services: practice address Location of patient: address on file Patient Identification confirmed using: Name, : Yes Telehealth method: video Patient verbally consented to treatment: Yes Patient verbally consented to billing insurance company: Yes Patient informed of any privacy concerns related to visit: Yes Assessment and Plan Assessment & Plan (1) Diabetes mellitus type 2 in obese: Code(s): E11.69 - Type 2 diabetes mellitus with other specified complication; E66.9 - Obesity, unspecified (2) Hypertension, essential: Code(s): I10 - Essential (primary) hypertension (3) Lipid disorder: Code(s): E78.9 - Disorder of lipoprotein metabolism, unspecified (4) Other specified hypothyroidism: Code(s): E03.8 - Other specified hypothyroidism (5) Environmental allergies: Code(s): Z91.09 - Other allergy status, other than to drugs and biological substances (6) Allergic rhinitis: Code(s): J30.9 - Allergic rhinitis, unspecified Qualifiers: Allergic rhinitis seasonality: seasonal Allergic rhinitis trigger: other Qualified Code(s): J30.89 - Other allergic rhinitis Plan Patient is 62-year-old female this is a telemedicine video follow-up appointment Patient is in her usual state of health and offer no new complaints Hypertension: Patient is on lisinopril to 40 mg and amlodipine 10 mg, she is to continue with hydrochlorothiazide 25 mg. Tolerating medication blood pressure is stable, blood pressure is running around 120-130 systolic at home Diabetes: Hemoglobin A1c is stable , patient is taking metformin 1 g b.i.d. and tolerating medication. I am reducing it to 1 a day Lipid disorder: Continue simvastatin 40 mg Allergies are stable patient is on long-acting antihistamine Morbid obesity: Patient is still struggling to lose weight Labs needs to be done in 3 months with follow-up appointment Orders: Orders Complete Blood Count Auto Diff Today E03.8 - Other specified hypothyroidism, E11.69 - Type 2 diabetes mellitus with other specified complication, E66.9 - Obesity, unspecified, E78.9 - Disorder of lipoprotein metabolism, unspecified, I10 - Essential (primary) hypertension, J30.9 - Allergic rhinitis, unspecified, Z91.09 - Other allergy status, other than to drugs and biological substances TSH reflex Free T4 Today E03.8 - Other specified hypothyroidism, E11.69 - Type 2 diabetes mellitus with other specified complication, E66.9 - Obesity, unspecified, E78.9 - Disorder of lipoprotein metabolism, unspecified, I10 - Essential (primary) hypertension, J30.9 - Allergic rhinitis, unspecified, Z91.09 - Other allergy status, other than to drugs and biological substances Microalbumin, Random (w Creat) Today E03.8 - Other specified hypothyroidism, E11.69 - Type 2 diabetes mellitus with other specified complication, E66.9 - Obesity, unspecified, E78.9 - Disorder of lipoprotein metabolism, unspecified, I10 - Essential (primary) hypertension, J30.9 - Allergic rhinitis, unspecified, Z91.09 - Other allergy status, other than to drugs and biological substances Lipid Panel Today E03.8 - Other specified hypothyroidism, E11.69 - Type 2 diabetes mellitus with other specified complication, E66.9 - Obesity, unspecified, E78.9 - Disorder of lipoprotein metabolism, unspecified, I10 - Essential (primary) hypertension, J30.9 - Allergic rhinitis, unspecified, Z91.09 - Other allergy status, other than to drugs and biological substances Comprehensive [place]. Panel Fast Today E03.8 - Other specified hypothyroidism, E11.69 - Type 2 diabetes mellitus with other specified complication, E66.9 - Obesity, unspecified, E78.9 - Disorder of lipoprotein metabolism, unspecified, I10 - Essential (primary) hypertension, J30.9 - Allergic rhinitis, unspecified, Z91.09 - Other allergy status, other than to drugs and biological substances Hemoglobin A1c Today E03.8 - Other specified hypothyroidism, E11.69 - Type 2 diabetes mellitus with other specified complication, E66.9 - Obesity, unspecified, E78.9 - Disorder of lipoprotein metabolism, unspecified, I10 - Essential (primary) hypertension, J30.9 - Allergic rhinitis, unspecified, Z91.09 - Other allergy status, other than to drugs and biological substances Medications: Changed From cetirizine (Zyrtec) 10 mg PO DAILY 30 days 30 tabs 0RF To cetirizine (Zyrtec) 10 mg PO DAILY 90 tabs 0RF 90 days Coding Level of Care Code Tele Est Pt Level 4 (23074) Diagnoses Diabetes mellitus type 2 in obese E11.69; E66.9 Hypertension, essential I10 Lipid disorder E78.9 Other specified hypothyroidism E03.8 Environmental allergies Z91.09 Seasonal allergic rhinitis due to other allergic trigger J30.89 Allergic rhinitis seasonality: seasonal Allergic rhinitis trigger: other Time Spent (min) 31 Comment 5 pre visit, 16 with pt, 5 min charting, 5 coordination of care
== END 2023-07-23 15:14 | disposition home or self-care (01) ==
LOC: HO.HMGC 08:54
PROVIDERS: PCP Internal Medicine; Visit Provider Internal Medicine
DX: E11.69 Type 2 diabetes mellitus with other specified complication (principal); E66.9 Obesity, unspecified; I10 Essential (primary) hypertension; E78.9 Disorder of lipoprotein metabolism, unspecified; E03.8 Other specified hypothyroidism; Z91.09 Other allergy status, other than to drugs and biological substances; J30.89 Other allergic rhinitis
CPT/HCPCS: 99214

== ENCOUNTER 2024-01-29 12:26 | Outpatient (REF) | payer OTHER, SELFPAY ==
[2024-01-29 13:31] LABS: MANUAL DIFF FLAG NO
[2024-01-29 13:37] LABS: Basophils Percent Auto 0.3 % (0-2); Eosinophils Absolute Auto 0.1 X10*3/uL (0.0-0.4); Eosinophils Percent Auto 0.6 % (0-4); Hematocrit 45.6 % (37.0-47.0); Hemoglobin 15.2 g/dl (12.0-16.0); Imm Gran Abs Auto 0.05 X10*3/uL (0.00-0.03); Imm Gran Pct Auto 0.5 % (0.0-0.4); Lymphocytes Absolute Auto 2.5 X10*3/uL (1.2-4.9); Lymphocytes Percent Auto 25.2 % (20-40); Mean Corpuscular HGB Conc 33.3 g/dl (31.0-35.0); Mean Corpuscular Hemoglobin 31.4 pg (27.0-33.0); Mean Corpuscular Volume 94.2 fL (80.0-98.0); Mean Platelet Volume 8.4 fL (9.4-12.3); Monocytes Absolute Auto 0.5 X10*3/uL (0.1-1.2); Monocytes Percent Auto 5.2 % (2-11); Neutrophils Absolute Auto 6.7 x10*3/uL (2.0-8.3); Neutrophils Percent Auto 68.2 % (45-73); Platelet Count 295 X10*3/uL (160-400); Red Blood Count 4.84 X10*6/uL (4.20-5.50); Red Cell Distribution Width 14.6 % (11.0-16.0); White Blood Count 9.9 X10*3/uL (4.8-10.8)
[2024-01-29 14:11] LABS: Estimated Average Glucose 123 mg/dL; Hemoglobin A1c % 5.9 % (<6.0)
[2024-01-29 14:36] LABS: Alanine Aminotransferase 12 U/L (0-31); Albumin Level 4.2 g/dL (3.5-5.0); Alkaline Phosphatase 68 U/L (39-117); Anion Gap 12 (12-20); Aspartate Amino Transferase 15 U/L (5-31); Bilirubin Total 0.4 mg/dL (0.0-1.0); Blood Urea Nitrogen 15 mg/dL (9-16); Carbon Dioxide 23 mmol/L (22-29); Chloride 103 mmol/L (96-108); Cholesterol 257 mg/dL (<200); Estimated Glomerular Filt Rate > 60; Glucose Fasting 107 mg/dL (60-99); HDL Cholesterol 55 mg/dL (>40); LDL Cholesterol Calculated 165 mg/dL (<100); Potassium 4.3 mmol/L (3.3-5.1); Sodium 134 mmol/L (135-145); Total Protein 7.3 g/dL (6.5-8.0); Triglycerides 186 mg/dL (<150)
[2024-01-29 14:51] LABS: TSH reflex Free T4 9.41 uIU/mL (0.32-4.0)
[2024-01-29 15:24] LABS: Free T4 (Free Thyroxine) 0.68 ng/dL (0.71-1.85)
[2024-01-29 17:11] LABS: Creatinine Urine 58.09 mg/dL; Microalbum/Creatinine Ratio Ur 48.2 ug/mg cr (<30)
== END 2024-01-29 12:27 | disposition home or self-care (01) ==
LOC: HO.HMGCLDS 12:26
PROVIDERS: PCP Internal Medicine; Visit Provider Internal Medicine
DX: E78.9 Disorder of lipoprotein metabolism, unspecified (principal); I10 Essential (primary) hypertension; E11.9 Type 2 diabetes mellitus without complications; E66.01 Morbid (severe) obesity due to excess calories; E11.69 Type 2 diabetes mellitus with other specified complication; E03.8 Other specified hypothyroidism; J30.89 Other allergic rhinitis; Z23 Encounter for immunization; Z91.09 Other allergy status, other than to drugs and biological substances; Z68.41 Body mass index [BMI] 40.0-44.9, adult; Z79.899 Other long term (current) drug therapy
CPT/HCPCS: 36415; 80053; 80061; 82043; 82570; 83036; 84439; 84443; 85025; 90471; 90677; 96127

== ENCOUNTER 2024-01-29 12:52 | Outpatient (AMB) | payer OTHER, SELFPAY ==
[2024-01-29 12:59] VITALS: BP 138/82; PULSE 94; O2SAT 96; BMI 44.9
--- NOTE | 2024-01-29 12:59 | A.OFFPC_ITS ---
Vital Signs 01/29/24 12:59 Height 5 ft 5 in Weight 270 lb BMI 44.9 BP 138/82 Blood Pressure Location Lt brachial Position Sitting Pulse 94 Pulse Source Pulse Oximeter Pulse Oximetry (%) 96 Oxygen Delivery Method Room Air Intake Visit Reasons: Overdue F/u Allergies No Known Allergies [No Known Allergies*] Allergy (Verified 01/29/24 13:02) Medication List - Last Reconciled 01/29/24 by Kia Young MD amlodipine 10 mg PO DAILY 90 days cetirizine (Zyrtec) 10 mg PO DAILY 90 days escitalopram oxalate (Lexapro) 10 mg PO DAILY 90 days fluticasone propionate 50 mcg/actuation (Allergy Relief (fluticasone)) 1 spray intranasal DAILY 30 days hydrochlorothiazide 25 mg PO QAM levothyroxine 175 mcg PO DAILY 90 days lisinopril 40 mg PO ONCE 90 days metformin 1,000 mg PO BID simvastatin 40 mg PO BEDTIME Tobacco use date assessed: 01/29/24 Dental Screening Dental Screen Date: 07/23/23 HPI Overdue F/u HPI Details Patient is 63-year-old female came in today for follow-up appointment, last visit was July of this year Patient is in her usual state of health and offer no new complaints Patient could not make it to her regular follow-up appointment in October, ran out of her medications She just had labs done today I do not have the report yet Hypertension: Patient is on lisinopril to 40 mg and amlodipine 10 mg, she is to continue with hydrochlorothiazide 25 mg. Tolerating medication blood pressure is stable, blood pressure is running around 120-130 systolic at home Diabetes: Hemoglobin A1c is stable , patient is taking metformin 1 g once a day, and diet-controlled Lipid disorder: Continue simvastatin 40 mg Allergies are stable patient is on long-acting antihistamine, she has mild wheezing today because she ran out of her allergy medicines Morbid obesity: Patient is still struggling to lose weight Prevnar vaccine was given today She will get flu vaccine from pharmacy Follow-up 3 months [facility] Surgical History No pertinent past surgical history Family History Other Mental health disorder Substance use disorder Social History Housing: Apartment Patient Tobacco Use Status: Former Tobacco user e-Cigarette/Vaping Use: Never Used service: No Current occupational status: employed Cognitive needs: No Hearing needs: No Vision needs: Yes Questionnaire PHQ-9 Over the last 2 weeks, how often have you been bothered by any of the following problems? 1. Little interest or pleasure in doing things: not at all 2. Feeling down, depressed, or hopeless: not at all 3. Trouble falling or staying asleep, or sleeping too much: not at all 4. Feeling tired or having little energy: not at all 5. Poor appetite or overeating: not at all 6. Feeling bad about yourself - or that you are a failure or have let yourself or your family down: not at all 7. Trouble concentrating on things, such as reading the newspaper or watching television: not at all 8. Moving or speaking so slowly that other people could have noticed. Or the opposite - being so fidgety or restless that you have been moving around a lot more than usual: not at all 9. Thoughts that you would be better off or of hurting yourself in some way: not at all Total score: 0 Depression Screening Interpretation: Negative Depression Screening Done: Yes Source: Developed by Drs. José Manuel Brady, Nelda Brian, Perez Lorenzo and colleagues, with an educational rudy from [employer]. Thrive Questionnaire Date Thrive assessed: 01/29/24 I am a: Patient What is your living situation today?: I have a steady place to live Within the past 12 months, did the food you bought not last and you didn't have the money to get more?: Never true Within the past 12 months, did you worry whether your food would run out before you got money to buy more?: Never true Do you have trouble paying for medicines?: No Do you have trouble getting transportation to medical appointments?: I choose not to answer this question Do you have trouble paying your heating and electricity bill?: No Do you have trouble taking care of your child, family member or friend?: No Do you have trouble with day-to-day activities such as bathing, preparing meals, shopping, managing finances, etc.?: No Are you interested in more education?: No Please select the resources that you would like help with: None Currently or been in a relationship where the following occur: No concerns reported THRIVE Score: 0 AUDIT C Alcohol Use Questionnaire (AUDIT-C) 1. How often do you have a drink containing alcohol?: Never 3. How often do you have six or more drinks on one occasion?: Never Total Score: 0 DANICA-7 AMB Questionnaire DANICA-7 Date DANICA - 7 assessed: 01/29/24 Feeling nervous, anxious, or on edge: 0 = Not at all Not being able to stop or control worryin = Not at all Worrying too much about different things: 0 = Not at all Trouble relaxin = Not at all Being so restless that it is hard to sit still: 0 = Not at all Becoming easily annoyed or irritable: 0 = Not at all Feeling afraid as if something awful might happen: 0 = Not at all Total DANICA-7 score (0-4 normal; 5-9 mild; 10-14 moderate; 15-21 severe): 0 Source: Developed by Drs. José Manuel Brady, Nelda Brian, Perez Lorenzo and colleagues, with an educational rudy from [employer]. DANICA-7 Assessment Billing DANICA-7 Assessment Tool: DANICA-7 Assessment 16157 Review of Systems Const Denies chills and Denies fever(s) ENT Denies epistaxis and Denies nasal discharge Card Denies chest pain Resp Denies chest congestion, Denies cough and Denies hemoptysis GI Denies diarrhea and Denies nausea Skin/Breast Denies rash Neuro Reports no additional complaints Psych Reports no additional complaints Endo Reports no additional complaints Physical exam (Primary Care) Vital Signs: Last Vital Signs Pulse 94 01/29/24 12:59 BP 138/82 01/29/24 12:59 Pulse Ox 96 01/29/24 12:59 Oxygen Delivery Method Room Air 01/29/24 12:59 BMI result Body Mass Index 44.9 Tobacco/Smoking Status: Tobacco use Status Tobacco use date assessed 01/29/24 01/29/24 13:04 Patient Tobacco Use Status Former Tobacco user 01/29/24 13:00 e-Cigarette/Vaping Use Never Used 01/29/24 13:00 PHQ-9: PHQ-9 Score PHQ-9: Total score 0 01/29/24 13:34 Depression Screening Interpretation: Negative Thrive Assessment: Date of Thrive Assessment Date Thrive assessed 01/29/24 01/29/24 13:04 Currently or been in a relationship where the following occur: No concerns reported Const General: cooperative, comfortable and no acute distress Orientation/consciousness: patient oriented x3 HENMT Head: Yes normocephalic Eyes General: appearance normal, both eyes and all related structures Neck Neck: Yes supple Resp Effort & Inspection: normal respiratory effort, no cough and no stridor Cardio Rhythm: regular rhythm Heart sounds: S1 normal heart sound present and S2 normal heart sound present Skin General skin exam: turgor normal Neuro General: patient oriented x3, tone normal and moves all extremities Extrem Right lower extremity: no edema Left lower extremity: no edema Immunizations pneumoc 20-alexi conj-dip cr(PF) 0.5 mL IM syringe Performing Provider: Kia Young MD Performing Location: [facility] Administered by: Alexi Iqbal CMA on 01/29/24 13:34 Dose Route Admin Location Dispensed Lot Number Expiration Date [facility] [employer] Of [employer] 0.5 mL IM Right Deltoid 0.5 mL [id number] 11/07/24 8695-1112-25 [employer] VIS Given Date VIS Provided VIS Publication Date 01/29/24 Single Vaccine 21 Eligibility Eligibility Date Funding Source Not [facility] Eligible 01/29/24 Private Assessment and Plan Assessment & Plan (1) Diabetes mellitus type 2 in obese: Code(s): E11.69 - Type 2 diabetes mellitus with other specified complication; E66.9 - Obesity, unspecified (2) Hypertension, essential: Code(s): I10 - Essential (primary) hypertension (3) Lipid disorder: Code(s): E78.9 - Disorder of lipoprotein metabolism, unspecified (4) Other specified hypothyroidism: Code(s): E03.8 - Other specified hypothyroidism (5) Environmental allergies: Code(s): Z91.09 - Other allergy status, other than to drugs and biological substances (6) Allergic rhinitis: Code(s): J30.9 - Allergic rhinitis, unspecified Qualifiers: Allergic rhinitis seasonality: seasonal Allergic rhinitis trigger: other Qualified Code(s): J30.89 - Other allergic rhinitis Plan Patient is 63-year-old female came in today for follow-up appointment, last visit was July of this year Patient is in her usual state of health and offer no new complaints Patient could not make it to her regular follow-up appointment in October, ran out of her medications She just had labs done today I do not have the report yet Hypertension: Patient is on lisinopril to 40 mg and amlodipine 10 mg, she is to continue with hydrochlorothiazide 25 mg. Tolerating medication blood pressure is stable, blood pressure is running around 120-130 systolic at home Diabetes: Hemoglobin A1c is stable , patient is taking metformin 1 g once a day, and diet-controlled Lipid disorder: Continue simvastatin 40 mg Allergies are stable patient is on long-acting antihistamine, she has mild wheezing today because she ran out of her allergy medicines Morbid obesity: Patient is still struggling to lose weight Prevnar vaccine was given today She will get flu vaccine from pharmacy Follow-up 3 months Orders: Orders Pneumococcal 20 Immunization Today Z23 - Encounter for immunization Medications: Refilled cetirizine (Zyrtec) 10 mg PO DAILY 90 tabs 0RF 90 days simvastatin 40 mg PO BEDTIME 90 caps 0RF amlodipine 10 mg PO DAILY 90 caps 0RF 90 days escitalopram oxalate (Lexapro) 10 mg PO DAILY 90 tabs 0RF 90 days fluticasone propionate 50 mcg/actuation (Allergy Relief (fluticasone)) administer into each nostril 1 spray intranasal DAILY 1 mL 2RF 30 days R09.81 - Nasal congestion hydrochlorothiazide 25 mg PO QAM 90 caps 0RF levothyroxine 175 mcg PO DAILY 90 tabs 0RF 90 days lisinopril 40 mg PO ONCE 90 tabs 0RF 90 days metformin 1,000 mg PO BID 180 caps 0RF Coding Level of Care Code Est Pt Level 4 (86491) Diagnoses Diabetes mellitus type 2 in obese E11.69; E66.9 Hypertension, essential I10 Lipid disorder E78.9 Other specified hypothyroidism E03.8 Environmental allergies Z91.09 Seasonal allergic rhinitis due to other allergic trigger J30.89 Allergic rhinitis seasonality: seasonal Allergic rhinitis trigger: other Additional Codes DANICA-7 Assessment Billing - DANICA-7 Assessment Tool: DANICA-7 Assessment [id number] ([id number])
== END 2024-01-29 13:34 | disposition home or self-care (01) ==
PROVIDERS: PCP Internal Medicine; Visit Provider Internal Medicine
DX: E11.69 Type 2 diabetes mellitus with other specified complication (principal); E66.9 Obesity, unspecified; I10 Essential (primary) hypertension; Z68.41 Body mass index [BMI] 40.0-44.9, adult; E78.9 Disorder of lipoprotein metabolism, unspecified; E03.8 Other specified hypothyroidism; Z91.09 Other allergy status, other than to drugs and biological substances; J30.89 Other allergic rhinitis; Z23 Encounter for immunization

== ENCOUNTER 2024-03-30 08:18 | Outpatient (REF) | payer OTHER, SELFPAY ==
[2024-03-30 10:27] LABS: Estimated Average Glucose 123 mg/dL; Hemoglobin A1C 170.7005 umol/L; Hemoglobin A1c % 5.9 % (<6.0); Total Hemoglobin (HGBA1C) 4163.1148 umol/L
[2024-03-30 10:46] LABS: Alanine Aminotransferase 13 U/L (0-31); Albumin Level 4.3 g/dL (3.5-5.0); Alkaline Phosphatase 66 U/L (39-117); Anion Gap 15 (12-20); Aspartate Amino Transferase 19 U/L (5-31); Bilirubin Total 0.4 mg/dL (0.0-1.0); Blood Urea Nitrogen 17 mg/dL (9-16); Carbon Dioxide 26 mmol/L (22-29); Chloride 97 mmol/L (96-108); Cholesterol 173 mg/dL (<200); Estimated Glomerular Filt Rate > 60; Glucose Fasting 119 mg/dL (60-99); HDL Cholesterol 53 mg/dL (>40); LDL Cholesterol Calculated 89 mg/dL (<100); Potassium 4.5 mmol/L (3.3-5.1); Sodium 133 mmol/L (135-145); TSH reflex Free T4 1.63 uIU/mL (0.32-4.0); Total Protein 7.1 g/dL (6.5-8.0); Triglycerides 159 mg/dL (<150)
== END 2024-03-30 08:19 | disposition home or self-care (01) ==
LOC: HO.HMGCLDS 08:18
PROVIDERS: PCP Internal Medicine; Visit Provider Internal Medicine
DX: E78.9 Disorder of lipoprotein metabolism, unspecified (principal); E03.8 Other specified hypothyroidism; I10 Essential (primary) hypertension; E13.9 Other specified diabetes mellitus without complications
CPT/HCPCS: 36415; 80053; 80061; 83036; 84443

== ENCOUNTER 2024-04-27 13:06 | Outpatient (AMB) | payer OTHER, SELFPAY ==
--- NOTE | 2024-04-27 13:08 | A.OFFPC_ITS ---
Vital Signs 04/27/24 13:11 Height 5 ft 5 in Weight 268 lb 6 oz BMI 44.7 BP 144/80 H Blood Pressure Location Rt brachial Position Sitting Pulse 103 H Pulse Source Pulse Oximeter Pulse Oximetry (%) 93 Oxygen Delivery Method Room Air Intake Visit Reasons: 3 month follow up Allergies No Known Allergies [No Known Allergies*] Allergy (Verified 04/27/24 13:08) Medication List - Last Reconciled 04/27/24 by Kia Young MD amlodipine 10 mg PO DAILY 90 days blood sugar diagnostic (FreeStyle Test strips) Test blood sugar once a day blood-glucose meter (FreeStyle System Kit) As directed cetirizine (Zyrtec) 10 mg PO DAILY 90 days escitalopram oxalate (Lexapro) 10 mg PO DAILY 90 days fluticasone propionate 50 mcg/actuation (Allergy Relief (fluticasone)) 1 spray intranasal DAILY 30 days hydrochlorothiazide 25 mg PO QAM lancets (FreeStyle Lancets) Test blood sugar once a day levothyroxine 175 mcg PO DAILY 90 days lisinopril 40 mg PO ONCE 90 days metformin 1,000 mg PO BID simvastatin 40 mg PO BEDTIME Tobacco use date assessed: 04/27/24 Dental Screening Dental Screen Date: 04/27/24 Did you have a dental visit in the last 12 months?: Yes Did you have a dental problem in the last 6 months where you did not have access to dental care?: No Was dental information given to patient?: Patient has dentist HPI 3 month follow up HPI Details History - bulleted - The patient is a 63-year-old female pr esenting with elevated blood pressure. Recent blood pressure recorded as 144/80. Previously was 138. No current edema in ankles. Reports increased stress levels possibly contributing to elevated readings. - The patient mentions a dry throat and a tickling sensation, primarily occurring at night and during prolonged conversations. Symptoms appear to be aggravated by lying down post meals, suggesting possible GERD. - Reports Type 2 Diabetes Mellitus with glucose levels between 91-120 in the morning. A1c was recorded at 5.9 in the past, well-controlled. - Dyslipidemia is managed with current m edications. Cholesterol improved from 165 to 89. - Subclinical Hypothyroidism is being ma naged with ongoing medication. Thyroid levels are normal. - The patient has Generalized Anxiety Di sorder, reports mood fluctuations, and increased edginess. Work and personal life stressors cited, particularly concerning family caregiving responsibilities. Current medication dose is set to be increased for better management. Problem List - Essential Hypertension - Type 2 Diabetes Mellitus - Gastroesophageal Reflux Disease (GERD) - Dyslipidemia - Subclinical Hypothyroidism - Generalized Anxiety Disorder -morbid obesity Medications - Lisinopril 40 mg for Hypertension - Hydrochlorothiazide for Hypertension - Metformin for Type 2 Diabetes Mellitus - Simvastatin for Dyslipidemia - Levothyroxine for Subclinical Hypothyr oidism - Escitalopram 10 mg for Generalized Anx iety Disorder - Zyrtec (Cetirizine) for Allergies Diagnostic results - Labs: A1c at 5.9, normal range indicat ing well-controlled diabetes. - Labs: Liver enzymes within normal limi ts. - Labs: Cholesterol reduced from 165 to 89. - Labs: Thyroid function tests within no rmal range. Review of Systems - Respiratory: Reports a tickle in the b ack of throat during extended conversations and at night. - Endocrine: Denies current symptoms of hypothyroidism. - Psychiatric: Reports increased edgines s and stress affecting mood. General: No fever no chills neurological: No headaches no dizziness ear nose throat: No sore throat no hearing difficulty no ear pain musculoskeletal: Usual aches and pains nothing new cardiovascular: No syncope, no chest pain, no palpitations gastrointestinal: No nausea vomiting or diarrhea endocrine: No polyuria polydipsia no heat intolerance genitourinary: No dysuria skin: No new complaints Physical Exam general: No acute distress HEENT: No acute findings neck: Supple respiratory system: Able to talk in full sentences, no audible wheeze, no stridor cardiovascular: S1-S2 gastrointestinal: No pain extremities: No new findings DIRECTOR OF PARTNERSHIPS: Alert awake oriented x3 motor sensory intact skin: Normal turgor Patient Instructions - Avoid consuming meals or heavy drinkin g within three to four hours before bedtime to alleviate GERD symptoms. - Monitor blood pressure regularly due t o slight elevation and stress factors. - Increase current dose of Escitalopram as discussed for mood stabilization and management. - Continue managing Diabetes Mellitus wi th current regimen and maintain glucose tracking. - Schedule and receive flu vaccination a s planned. - Obtain RSV and COVID vaccines from the pharmacy. - Maintain follow-up appointment in September, ensuring necessary labs are completed beforehand. Patient has appointment in September for physical examination, labs are needed before visit fasting order placed [facility] Surgical History No pertinent past surgical history Family History Other Mental health disorder Substance use disorder Social History Housing: Apartment Patient Tobacco Use Status: Former Tobacco user e-Cigarette/Vaping Use: Never Used service: No Current occupational status: employed Cognitive needs: No Hearing needs: No Vision needs: Yes Questionnaire Thrive Questionnaire Date Thrive assessed: 04/27/24 I am a: Patient What is your living situation today?: I have a steady place to live Within the past 12 months, did the food you bought not last and you didn't have the money to get more?: Never true Within the past 12 months, did you worry whether your food would run out before you got money to buy more?: Never true Do you have trouble paying for medicines?: No Do you have trouble getting transportation to medical appointments?: I choose not to answer this question Do you have trouble paying your heating and electricity bill?: No Do you have trouble taking care of your child, family member or friend?: No Do you have trouble with day-to-day activities such as bathing, preparing meals, shopping, managing finances, etc.?: No Are you currently unemployed and looking for a job?: No Are you interested in more education?: No Please select the resources that you would like help with: None Currently or been in a relationship where the following occur: No concerns reported THRIVE Score: 0 AUDIT C Alcohol Use Questionnaire (AUDIT-C) 1. How often do you have a drink containing alcohol?: Never 3. How often do you have six or more drinks on one occasion?: Never Total Score: 0 Score Reviewed/Action Taken: Yes DANICA-7 AMB Questionnaire DANICA-7 Date DANIAC - 7 assessed: 01/29/24 Source: Developed by Drs. José Manuel Brady, Nelda Brian, Perez Lorenzo and colleagues, with an educational rudy from [employer] ([employer]). Physical exam (Primary Care) Vital Signs: Last Vital Signs Pulse 103 H 04/27/24 13:11 BP 144/80 H 04/27/24 13:11 Pulse Ox 93 04/27/24 13:11 Oxygen Delivery Method Room Air 04/27/24 13:11 BMI result Body Mass Index 44.7 Tobacco/Smoking Status: Tobacco use Status Tobacco use date assessed 04/27/24 04/27/24 13:15 Patient Tobacco Use Status Former Tobacco user 04/27/24 13:15 e-Cigarette/Vaping Use Never Used 04/27/24 13:15 Thrive Assessment: Date of Thrive Assessment Date Thrive assessed 04/27/24 04/27/24 13:15 Currently or been in a relationship where the following occur: No concerns reported Office Procedures Flu Questionnaire Does the patient have a severe egg allergy?: No Does the patient have severe life threatening allergies?: No Does the patient have a fever or illness today?: No Has the patient ever had Guillain-[place] Syndrome?: No Has the patient ever had any past reaction to a flu shot?: No Immunizations Fluarix Triv [id number] (PF) 45 mcg (15 mcg x 3)/0.5 mL IM syringe Performing Provider: Kia Young MD Performing Location: [facility] [place] [facility] Administered by: ANA Nunez on 04/27/24 13:49 Dose Route Admin Location Dispensed Lot Number Expiration Date [facility] Wireworker 0.5 mL IM Right Deltoid 0.5 mL [id number] 11/07/24 [id number] VULCUN VIS Given Date VIS Provided VIS Publication Date 04/27/24 Single Vaccine 20 Eligibility Eligibility Date Funding Source Not [facility] Eligible 04/27/24 Private Coding Level of Care Code Est Pt Level 4 (38620) Diagnoses Hypertension, essential I10 Lipid disorder E78.9 Other specified hypothyroidism E03.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, managed as type 2 E13.9 Morbid obesity due to excess calories E66.01 Stress at work Z56.6 Environmental allergies Z91.09 Seasonal allergic rhinitis due to other allergic trigger J30.89 Allergic rhinitis trigger: other Allergic rhinitis seasonality: seasonal Assessment & Plan Assessment & Plan (1) Hypertension, essential: Code(s): I10 - Essential (primary) hypertension Category: Medical (2) Lipid disorder: Code(s): E78.9 - Disorder of lipoprotein metabolism, unspecified Category: Medical (3) Other specified hypothyroidism: Code(s): E03.8 - Other specified hypothyroidism Category: Medical (4) Diabetes 1.5, managed as type 2: Code(s): E13.9 - Other specified diabetes mellitus without complications Category: Medical (5) Morbid obesity due to excess calories: Code(s): E66.01 - Morbid (severe) obesity due to excess calories Category: Medical (6) Stress at work: Code(s): Z56.6 - Other physical and mental strain related to work Category: Social Hx (7) Environmental allergies: Code(s): Z91.09 - Other allergy status, other than to drugs and biological substances Category: Medical (8) Allergic rhinitis: Code(s): J30.9 - Allergic rhinitis, unspecified Category: Medical Qualifiers: Allergic rhinitis trigger: other Allergic rhinitis seasonality: seasonal Qualified Code(s): J30.89 - Other allergic rhinitis Plan History - bulleted - The patient is a 63-year-old female presenting with elevated blood pressure. Recent blood pressure recorded as 144/80. Previously was 138. No current edema in ankles. Reports increased stress levels possibly contributing to elevated readings. - The patient mentions a dry throat and a tickling sensation, primarily occurring at night and during prolonged conversations. Symptoms appear to be aggravated by lying down post meals, suggesting possible GERD. - Reports Type 2 Diabetes Mellitus with glucose levels between 91-120 in the morning. A1c was recorded at 5.9 in the past, well-controlled. - Dyslipidemia is managed with current medications. Cholesterol improved from 165 to 89. - Subclinical Hypothyroidism is being managed with ongoing medication. Thyroid levels are normal. - The patient has Generalized Anxiety Disorder, reports mood fluctuations, and increased edginess. Work and personal life stressors cited, particularly concerning family caregiving responsibilities. Current medication dose is set to be increased for better management. Problem List - Essential Hypertension - Type 2 Diabetes Mellitus - Gastroesophageal Reflux Disease (GERD) - Dyslipidemia - Subclinical Hypothyroidism - Generalized Anxiety Disorder -morbid obesity Medications - Lisinopril 40 mg for Hypertension - Hydrochlorothiazide for Hypertension - Metformin for Type 2 Diabetes Mellitus - Simvastatin for Dyslipidemia - Levothyroxine for Subclinical Hypothyroidism - Escitalopram 10 mg for Generalized Anxiety Disorder - Zyrtec (Cetirizine) for Allergies Diagnostic results - Labs: A1c at 5.9, normal range indicating well-controlled diabetes. - Labs: Liver enzymes within normal limits. - Labs: Cholesterol reduced from 165 to 89. - Labs: Thyroid function tests within normal range. Review of Systems - Respiratory: Reports a tickle in the back of throat during extended conversations and at night. - Endocrine: Denies current symptoms of hypothyroidism. - Psychiatric: Reports increased edginess and stress affecting mood. General: No fever no chills neurological: No headaches no dizziness ear nose throat: No sore throat no hearing difficulty no ear pain musculoskeletal: Usual aches and pains nothing new cardiovascular: No syncope, no chest pain, no palpitations gastrointestinal: No nausea vomiting or diarrhea endocrine: No polyuria polydipsia no heat intolerance genitourinary: No dysuria skin: No new complaints Physical Exam general: No acute distress HEENT: No acute findings neck: Supple respiratory system: Able to talk in full sentences, no audible wheeze, no stridor cardiovascular: S1-S2 gastrointestinal: No pain extremities: No new findings DIRECT[employer]SH[employer]: Alert awake oriented x3 motor sensory intact skin: Normal turgor Patient Instructions - Avoid consuming meals or heavy drinking within three to four hours before bedtime to alleviate GERD symptoms. - Monitor blood pressure regularly due to slight elevation and stress factors. - Increase current dose of Escitalopram as discussed for mood stabilization and management. - Continue managing Diabetes Mellitus with current regimen and maintain glucose tracking. - Schedule and receive flu vaccination as planned. - Obtain RSV and COVID vaccines from the pharmacy. - Maintain follow-up appointment in September, ensuring necessary labs are completed beforehand. Patient has appointment in September for physical examination, labs are needed before visit fasting order placed Orders: Orders Hemoglobin A1c 3 Months E03.8 - Other specified hypothyroidism, E13.9 - Other specified diabetes mellitus without complications, E66.01 - Morbid (severe) obesity due to excess calories, E78.9 - Disorder of lipoprotein metabolism, unspecified, I10 - Essential (primary) hypertension, J30.89 - Other allergic rhinitis, Z56.6 - Other physical and mental strain related to work, Z91.09 - Other allergy status, other than to drugs and biological substances Complete Blood Count Auto Diff 3 Months E03.8 - Other specified hypothyroidism, E13.9 - Other specified diabetes mellitus without complications, E66.01 - Morbid (severe) obesity due to excess calories, E78.9 - Disorder of lipoprotein metab olism, unspecified, I10 - Essential (primary) hypertension, J30.89 - Other allergic rhinitis, Z56.6 - Other physical and mental strain related to work, Z91.09 - Other allergy status, other than to drugs and biological substances Lipid Panel 3 Months E03.8 - Other specified hypothyroidism, E13.9 - Other specified diabetes mellitus without complications, E66.01 - Morbid (severe) obesity due to excess calories, E78.9 - Disorder of lipoprotein metabolism, unspecified, I10 - Essential (primary) hypertension, J30.89 - Other allergic rhinitis, Z56.6 - Other physical and mental strain related to work, Z91.09 - Other allergy status, other than to drugs and biological substances Influenza [id number] Immunization Today Z23 - Encounter for immunization Microalbumin, Random (w Creat) 3 Months E03.8 - Other specified hypothyroidism, E13.9 - Other specified diabetes mellitus without complications, E66.01 - Morbid (severe) obesity due to excess calories, E78.9 - Disorder of lipoprotein metabolism, unspecified, I10 - Essential (primary) hypertension, J30.89 - Other allergic rhinitis, Z56.6 - Other physical and mental strain related to work, Z91.09 - Other allergy status, other than to drugs and biological substances Comprehensive [place]. Panel Fast 3 Months E03.8 - Other specified hypothyroidism, E13.9 - Other specified diabetes mellitus without complications, E66.01 - Morbid (severe) obesity due to excess calories, E78.9 - Disorder of lipoprotein metabolism, unspecified, I10 - Essential (primary) hypertension, J30.89 - Other allergic rhinitis, Z56.6 - Other physical and mental strain related to work, Z91.09 - Other allergy status, other than to drugs and biological substances TSH reflex Free T4 3 Months E03.8 - Other specified hypothyroidism, E13.9 - Other specified diabetes mellitus without complications, E66.01 - Morbid (severe) obesity due to excess calories, E78.9 - Disorder of lipoprotein metabolism, unspecified, I10 - Essential (primary) hypertension, J30.89 - Other allergic rhinitis, Z56.6 - Other physical and mental strain related to work, Z91.09 - Other allergy status, other than to drugs and biological substances Medications: New Fluarix Triv [id number] (PF) (flu vacc [id number] 6mos up(PF)) 0.5 mL IM ONCE 0.5 mL 0RF NS Z23 - Encounter for immunization pantoprazole 20 mg PO DAILY 90 tabs 0RF Acid reflux Changed From escitalopram oxalate (Lexapro) 10 mg PO DAILY 90 days 90 tabs 0RF To escitalopram oxalate 20 mg PO DAILY 90 days 90 tabs 1RF
[2024-04-27 13:11] VITALS: BP 144/80; PULSE 103; O2SAT 93; BMI 44.7
== END 2024-04-27 14:09 | disposition home or self-care (01) ==
PROVIDERS: PCP Internal Medicine; Visit Provider Internal Medicine
DX: I10 Essential (primary) hypertension (principal); E13.9 Other specified diabetes mellitus without complications; E66.01 Morbid (severe) obesity due to excess calories; Z68.41 Body mass index [BMI] 40.0-44.9, adult; E78.9 Disorder of lipoprotein metabolism, unspecified; E03.8 Other specified hypothyroidism; Z56.6 Other physical and mental strain related to work; Z91.09 Other allergy status, other than to drugs and biological substances; J30.89 Other allergic rhinitis; Z23 Encounter for immunization

== ENCOUNTER → 2024-04-27 13:06 | Outpatient (BNVA) | payer OTHER, SELFPAY | PROVIDERS: PCP Internal Medicine; Visit Provider Internal Medicine | DX: I10 Essential (primary) hypertension (principal); E78.5 Hyperlipidemia, unspecified; E03.8 Other specified hypothyroidism; E13.9 Other specified diabetes mellitus without complications; J30.89 Other allergic rhinitis; E66.01 Morbid (severe) obesity due to excess calories; Z91.09 Other allergy status, other than to drugs and biological substances; Z56.6 Other physical and mental strain related to work; Z23 Encounter for immunization | CPT/HCPCS: 90471; 90656 ==

== ENCOUNTER 2024-11-22 08:39 | Outpatient (REF) | payer OTHER, SELFPAY ==
[2024-11-22 10:13] LABS: MANUAL DIFF FLAG NO
[2024-11-22 10:24] LABS: Hemoglobin A1C 174.8922 umol/L; Total Hemoglobin (HGBA1C) 4150.1941 umol/L
[2024-11-22 10:40] LABS: Hematocrit 45.8 % (37.0-47.0); Hemoglobin 15.8 g/dl (12.0-16.0); Imm Gran Abs Auto 0.05 X10*3/uL (0.00-0.03); Imm Gran Pct Auto 0.4 % (0.0-0.4); Lymphocytes Absolute Auto 2.2 X10*3/uL (1.2-4.9); Mean Corpuscular HGB Conc 34.5 g/dl (31.0-35.0); Mean Corpuscular Hemoglobin 31.9 pg (27.0-33.0); Mean Corpuscular Volume 92.5 fL (80.0-98.0); NRBC Abs Auto 0.000 X10*3/uL (0.0-0.012); NRBC Pct Auto 0.0 /100WBC (0.0-0.2); Platelet Count 325 X10*3/uL (160-400); Red Blood Count 4.95 X10*6/uL (4.20-5.50); White Blood Count 11.3 X10*3/uL (4.8-10.8)
[2024-11-22 10:49] LABS: Alanine Aminotransferase 8 U/L (0-31); Albumin Level 4.5 g/dL (3.5-5.0); Alkaline Phosphatase 69 U/L (39-117); Anion Gap 15 (12-20); Aspartate Amino Transferase 21 U/L (5-31); Blood Urea Nitrogen 15 mg/dL (9-16); Calcium 8.9 mg/dL (8.4-10.2); Carbon Dioxide 26 mmol/L (22-29); Chloride 99 mmol/L (96-108); Cholesterol 176 mg/dL (<200); Estimated Glomerular Filt Rate > 60; HDL Cholesterol 49 mg/dL (>40); Potassium 4.1 mmol/L (3.3-5.1); Sodium 136 mmol/L (135-145); Total Protein 7.1 g/dL (6.5-8.0); Triglycerides 160 mg/dL (<150)
== END 2024-11-22 08:40 | disposition home or self-care (01) ==
LOC: HO.HMGCLDS 08:39
PROVIDERS: PCP Internal Medicine; Visit Provider Internal Medicine
DX: I10 Essential (primary) hypertension (principal); E13.9 Other specified diabetes mellitus without complications; E03.8 Other specified hypothyroidism; E78.9 Disorder of lipoprotein metabolism, unspecified; E66.01 Morbid (severe) obesity due to excess calories; J30.89 Other allergic rhinitis; Z56.6 Other physical and mental strain related to work; Z91.09 Other allergy status, other than to drugs and biological substances
CPT/HCPCS: 36415; 80053; 80061; 83036; 84443; 85025

== ENCOUNTER 2024-11-23 14:54 | Outpatient (AMB) | payer OTHER, SELFPAY ==
--- NOTE | 2024-11-23 14:55 | A.OFFPC_ITS ---
Vital Signs 11/23/24 14:56 Height 5 ft 5 in Weight 266 lb BMI 44.3 BP 140/82 H Blood Pressure Location Lt brachial Position Sitting Pulse 95 Pulse Source Pulse Oximeter Pulse Oximetry (%) 93 Intake Visit Reasons: Med Management Allergies No Known Allergies (No Known Allergies*) Allergy (Verified 11/23/24 14:56) Medication List - Last Reconciled 11/23/24 by Kia Young MD amlodipine 10 mg PO DAILY 90 days blood sugar diagnostic (FreeStyle Test strips) Test blood sugar once a day blood-glucose meter (FreeStyle System Kit) As directed cetirizine (Zyrtec) 10 mg PO DAILY 90 days escitalopram oxalate 20 mg PO DAILY 90 days fluticasone propionate 50 mcg/actuation (Allergy Relief (fluticasone)) 1 spray intranasal DAILY 30 days hydrochlorothiazide 25 mg PO QAM lancets (FreeStyle Lancets) Test blood sugar once a day levothyroxine 175 mcg PO DAILY 90 days lisinopril 40 mg PO ONCE 90 days metformin 1,000 mg PO BID pantoprazole 20 mg PO DAILY simvastatin 40 mg PO BEDTIME Tobacco use date assessed: 11/23/24 Fall risk assessment: No Falls in past year Last assessed Fall Risk: 11/23/24 Dental Screening Dental Screen Date: 11/23/24 Did you have a dental visit in the last 12 months?: Yes Did you have a dental problem in the last 6 months where you did not have access to dental care?: No Was dental information given to patient?: Patient has dentist HPI Med Management HPI Details History - The patient is a 64-year-old female pr esenting for ongoing care for HTN, DM, Lipid disorder, thyroid . - The dosage of the tranquilizer prescri bed Lexapro, a medication increased to 20 mg, was filled at 10 mg only. - The patient reports experiencing typic al aches and pains for her age and notes no other significant change. - The patient provides important context of significant recent life stressors, including multiple family deaths and caregiving responsibilities impacting her stress levels and potentially her health. Medical History: - Anxiety disorder, managed with an unsp ecified tranquilizer. - Chronic hypertension, managed with lis inopril and amlodipine. - Diabetes mellitus type 2, managed with metformin. - Hypothyroidism, managed with levothyro xine. - Hyperlipidemia, managed with simvastat in. - Gastroesophageal reflux disease, manag ed with pantoprazole. - Allergic rhinitis, managed with cetiri zine. Medications: - Amlodipine 10 mg for hypertension. - Cetirizine for allergic rhinitis. - Hydrochlorothiazide 25 mg, presumably for hypertension. - Levothyroxine 175 mcg for hypothyroidi sm. - Lisinopril for hypertension (dose unsp ecified). - Metformin 1 g, twice daily for diabete s mellitus. - Pantoprazole for gastroesophageal refl ux disease (dose unspecified). - Simvastatin for hyperlipidemia (dose u nspecified). 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 - Recent life stressors include the deat hs of family members, including her daughter's fianc?'s mother and her own sister, affecting her stress levels and possibly health. Diagnostic Results: - Recent laboratory tests indicate a sli ghtly elevated white blood cell count. - Hemoglobin level is considered normal. - Electrolytes and kidney function are w ithin normal ranges. - A1c level is 6.0, indicating good cont rol of diabetes. - Liver function tests are normal. - LDL cholesterol is at 95, indicating g ood control. - Thyroid function tests are normal. Problem List - Anxiety disorder - Hypertension - Diabetes mellitus type 2 - Hypothyroidism - Hyperlipidemia - Gastroesophageal reflux disease - Allergic rhinitis - Morbid obesity Patient Instructions - Continue with current medication regim en. - The medication dosage adjustment for a nxiety will be resent; take the new dosage as prescribed. - Physical activity is encouraged to all eviate any chest discomfort. - Monitor stress levels and engage in st ress-reduction techniques as needed. - Follow up as planned for routine blood work and check-ups. with apt early Nov Review of Systems - General: No fever no chills - Neurological: No headaches no dizziness - Ear nose throat: No sore throat no hearing difficulty no ear pain - Cardiovascular: No syncope, no chest pain, no palpitations - Gastrointestinal: No nausea vomiting or diarrhea - Endocrine: No polyuria polydipsia no heat intolerance - Genitourinary: No dysuria , no blood in urine Physical Exam - General: No acute distress - HEENT: No acute findings - Neck: Supple - Respiratory system: Able to talk in f ull sentences, no audible wheeze - Cardiovascular: S1-S2 regular in rate and rhythm - Gastrointestinal: No pain - Extremities: No new findings - LIVING SPECIALIST: Alert awake oriented x3 motor se nsory intact - Skin: Normal turgor PFSH Surgical History No pertinent past surgical history Family History Other Mental health disorder Substance use disorder Social History Housing: Apartment Patient Tobacco Use Status: Former Tobacco user e-Cigarette/Vaping Use: Never Used service: No Current occupational status: employed Cognitive needs: No Hearing needs: No Vision needs: Yes Questionnaire PHQ-9 Over the last 2 weeks, how often have you been bothered by any of the following problems? 1. Little interest or pleasure in doing things: not at all 2. Feeling down, depressed, or hopeless: not at all 3. Trouble falling or staying asleep, or sleeping too much: not at all 4. Feeling tired or having little energy: not at all 5. Poor appetite or overeating: not at all 6. Feeling bad about yourself - or that you are a failure or have let yourself or your family down: not at all 7. Trouble concentrating on things, such as reading the newspaper or watching television: not at all 8. Moving or speaking so slowly that other people could have noticed. Or the opposite - being so fidgety or restless that you have been moving around a lot more than usual: not at all 9. Thoughts that you would be better off or of hurting yourself in some way: not at all Total score: 0 Depression Screening Interpretation: Negative Depression Screening Done: Yes 55609 - PHQ-9 Billing: Yes Source: Developed by Drs. José Manuel Brady, Nelda Brian, Perez Lorenzo and colleagues, with an educational rudy from [employer]. Thrive Questionnaire Date Thrive assessed: 11/23/24 I am a: Patient What is your living situation today?: I have a steady place to live Within the past 12 months, did the food you bought not last and you didn't have the money to get more?: Never true Within the past 12 months, did you worry whether your food would run out before you got money to buy more?: Never true Do you have trouble paying for medicines?: No Do you have trouble getting transportation to medical appointments?: No Do you have trouble paying your heating and electricity bill?: No Do you have trouble taking care of your child, family member or friend?: No Do you have trouble with day-to-day activities such as bathing, preparing meals, shopping, managing finances, etc.?: No Are you currently unemployed and looking for a job?: No Are you interested in more education?: No Please select the resources that you would like help with: None Currently or been in a relationship where the following occur: No concerns reported THRIVE Score: 0 AUDIT C Alcohol Use Questionnaire (AUDIT-C) 1. How often do you have a drink containing alcohol?: Never 3. How often do you have six or more drinks on one occasion?: Never Total Score: 0 Score Reviewed/Action Taken: Yes DANICA-7 AMB Questionnaire DANICA-7 Date DANICA - 7 assessed: 11/23/24 Feeling nervous, anxious, or on edge: 0 = Not at all Not being able to stop or control worryin = Not at all Worrying too much about different things: 0 = Not at all Trouble relaxin = Not at all Being so restless that it is hard to sit still: 0 = Not at all Becoming easily annoyed or irritable: 0 = Not at all Feeling afraid as if something awful might happen: 0 = Not at all Total DANICA-7 score (0-4 normal; 5-9 mild; 10-14 moderate; 15-21 severe): 0 Source: Developed by Drs. José Manuel Brady, Nelda Brian, Perez Lorenzo and colleagues, with an educational rudy from [employer]. DANICA-7 Assessment Billing DANICA-7 Assessment Tool: DANICA-7 Assessment 40101 Physical exam (Primary Care) Vital Signs: Last Vital Signs Pulse 95 11/23/24 14:56 BP 140/82 H 11/23/24 14:56 Pulse Ox 93 11/23/24 14:56 BMI result Body Mass Index 44.3 Tobacco/Smoking Status: Tobacco use Status Tobacco use date assessed 11/23/24 11/23/24 14:58 Patient Tobacco Use Status Former Tobacco user 11/23/24 14:58 e-Cigarette/Vaping Use Never Used 11/23/24 14:58 PHQ-9: PHQ-9 Score PHQ-9: Total score 0 11/23/24 14:58 Depression Screening Interpretation: Negative Thrive Assessment: Date of Thrive Assessment Date Thrive assessed 11/23/24 11/23/24 14:58 Currently or been in a relationship where the following occur: No concerns reported Coding Level of Care Code Est Pt Level 4 (72657) Diagnoses Diabetes 1.5, managed as type 2 E13.9 Lipid disorder E78.9 Hypertension, essential I10 Anxiety, generalized F41.1 Environmental allergies Z91.09 Other specified hypothyroidism E03.8 Morbid obesity due to excess calories E66.01 Seasonal allergic rhinitis due to other allergic trigger J30.89 Allergic rhinitis trigger: other Allergic rhinitis seasonality: seasonal Additional Codes DANICA-7 Assessment Billing - DANICA-7 Assessment Tool: DANICA-7 Assessment 80069 ([id number]) PHQ-9 - 88187 - PHQ-9 Billing: Yes ([id number]) Assessment & Plan Assessment & Plan (1) Diabetes 1.5, managed as type 2: Code(s): E13.9 - Other specified diabetes mellitus without complications Category: Medical (2) Lipid disorder: Code(s): E78.9 - Disorder of lipoprotein metabolism, unspecified Category: Medical (3) Hypertension, essential: Code(s): I10 - Essential (primary) hypertension Category: Medical (4) Anxiety, generalized: Code(s): F41.1 - Generalized anxiety disorder Category: Medical (5) Environmental allergies: Code(s): Z91.09 - Other allergy status, other than to drugs and biological substances Category: Medical (6) Other specified hypothyroidism: Code(s): E03.8 - Other specified hypothyroidism Category: Medical (7) Morbid obesity due to excess calories: Code(s): E66.01 - Morbid (severe) obesity due to excess calories Category: Medical (8) Allergic rhinitis: Code(s): J30.9 - Allergic rhinitis, unspecified Category: Medical Qualifiers: Allergic rhinitis trigger: other Allergic rhinitis seasonality: seasonal Qualified Code(s): J.89 - Other allergic rhinitis Plan History - The patient is a 64-year-old female presenting for ongoing care for HTN, DM, Lipid disorder, thyroid . - The dosage of the tranquilizer prescribed Lexapro, a medication increased to 20 mg, was filled at 10 mg only. - The patient reports experiencing typical aches and pains for her age and notes no other significant change. - The patient provides important context of significant recent life stressors, including multiple family deaths and caregiving responsibilities impacting her stress levels and potentially her health. Medical History: - Anxiety disorder, managed with an unspecified tranquilizer. - Chronic hypertension, managed with lisinopril and amlodipine. - Diabetes mellitus type 2, managed with metformin. - Hypothyroidism, managed with levothyroxine. - Hyperlipidemia, managed with simvastatin. - Gastroesophageal reflux disease, managed with pantoprazole. - Allergic rhinitis, managed with cetirizine. Medications: - Amlodipine 10 mg for hypertension. - Cetirizine for allergic rhinitis. - Hydrochlorothiazide 25 mg, presumably for hypertension. - Levothyroxine 175 mcg for hypothyroidism. - Lisinopril for hypertension (dose unspecified). - Metformin 1 g, twice daily for diabetes mellitus. - Pantoprazole for gastroesophageal reflux disease (dose unspecified). - Simvastatin for hyperlipidemia (dose unspecified). 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 - Recent life stressors include the deaths of family members, including her daughter's fianc?'s mother and her own sister, affecting her stress levels and possibly health. Diagnostic Results: - Recent laboratory tests indicate a slightly elevated white blood cell count. - Hemoglobin level is considered normal. - Electrolytes and kidney function are within normal ranges. - A1c level is 6.0, indicating good control of diabetes. - Liver function tests are normal. - LDL cholesterol is at 95, indicating good control. - Thyroid function tests are normal. Problem List - Anxiety disorder - Hypertension - Diabetes mellitus type 2 - Hypothyroidism - Hyperlipidemia - Gastroesophageal reflux disease - Allergic rhinitis - Morbid obesity Patient Instructions - Continue with current medication regimen. - The medication dosage adjustment for anxiety will be resent; take the new dosage as prescribed. - Physical activity is encouraged to alleviate any chest discomfort. - Monitor stress levels and engage in stress-reduction techniques as needed. - Follow up as planned for routine blood work and check-ups. with apt early Nov Orders: Orders Comprehensive Met. Panel Today E03.8 - Other specified hypothyroidism, E13.9 - Other specified diabetes mellitus without complications, E78.9 - Disorder of lipoprotein metabolism, unspecified, I10 - Essential (primary) hypertension, Z91.09 - Other allergy status, other than to drugs and biological substances Microalbumin, Random (w Creat) Today E03.8 - Other specified hypothyroidism, E13.9 - Other specified diabetes mellitus without complications, E78.9 - Disorder of lipoprotein metabolism, unspecified, I10 - Essential (primary) hypertension, Z91.09 - Other allergy status, other than to drugs and biological substances Hemoglobin A1c Today E03.8 - Other specified hypothyroidism, E13.9 - Other specified diabetes mellitus without complications, E78.9 - Disorder of lipoprotein metabolism, unspecified, I10 - Essential (primary) hypertension, Z91.09 - Other allergy status, other than to drugs and biological substances Medications: Refilled escitalopram oxalate 20 mg PO DAILY 90 tabs 1RF 90 days
[2024-11-23 14:56] VITALS: BP 140/82; PULSE 95; O2SAT 93; BMI 44.3
== END 2024-11-23 15:09 | disposition home or self-care (01) ==
LOC: HO.HMCC 14:55
PROVIDERS: PCP Internal Medicine; Visit Provider Internal Medicine
DX: E13.9 Other specified diabetes mellitus without complications (principal); E78.9 Disorder of lipoprotein metabolism, unspecified; E66.01 Morbid (severe) obesity due to excess calories; Z68.41 Body mass index [BMI] 40.0-44.9, adult; I10 Essential (primary) hypertension; F41.1 Generalized anxiety disorder; Z91.09 Other allergy status, other than to drugs and biological substances; E03.8 Other specified hypothyroidism; J30.89 Other allergic rhinitis

== ENCOUNTER → 2024-11-23 14:54 | Outpatient (BNVA) | payer OTHER, SELFPAY | PROVIDERS: PCP Internal Medicine; Visit Provider Internal Medicine | DX: I10 Essential (primary) hypertension (principal); E78.5 Hyperlipidemia, unspecified; E13.9 Other specified diabetes mellitus without complications; E78.9 Disorder of lipoprotein metabolism, unspecified; F41.1 Generalized anxiety disorder; E03.8 Other specified hypothyroidism; E66.01 Morbid (severe) obesity due to excess calories; J30.89 Other allergic rhinitis; Z68.41 Body mass index [BMI] 40.0-44.9, adult; Z91.09 Other allergy status, other than to drugs and biological substances; Z79.899 Other long term (current) drug therapy | CPT/HCPCS: 96127 ==